=== PATIENT | male | born 1955 | race Caucasian/White ===

== ENCOUNTER 2017-08-14 12:55 | Inpatient (IN) | payer BC ==
[~2017-08-14] VITALS: Ht 180.3 cm; Wt 79.8 kg
[2017-08-14] MEDS ORDERED: ASPIRIN 81 MG TABLET CHEW PO ONE (13:30)
[2017-08-14] MEDS ORDERED: ASPIRIN 81 MG TABLET CHEW ONE (13:49)
[2017-08-14] MEDS ORDERED: PLEASE ENTER ALLERGIES MC SCH ×2 (14:00)
[2017-08-14 14:04] LABS: HEMATOCRIT 39.3 % (39.2-51.8); HEMOGLOBIN 13.5 g/dL (13.7-18.0); WHITE BLOOD COUNT 7.5 x10^3/uL (3.4-10)
[2017-08-14 14:14] LABS: BLOOD UREA NITROGEN 25 mg/dL (7-18)
[2017-08-14 14:22] LABS: IS PT STATUS REG ER OR PRE ER? YES
[2017-08-14] MEDS ORDERED: DEXAMETHASONE 4 MG/ML, 1ML IVPush ONE (14:35)
[2017-08-14] MEDS ORDERED: DEXAMETHASONE 4 MG/ML, 5ML ONE (14:46)
[2017-08-14] MEDS ORDERED: NIAC500T8 PO (15:03)
[2017-08-14] MEDS ORDERED: LISI-170 PO (15:03)
[2017-08-14] MEDS ORDERED: HYDROmorphone 2 MG/ML, 1ML IVPush PRN (15:30)
[2017-08-14] MEDS ORDERED: ACETAMINOPHEN 325 MG TABLET PO PRN (15:30)
[2017-08-14] MEDS ORDERED: LABETALOL 5MG/ML, 20ML IVPush PRN ×2 (15:30→18:30)
[2017-08-14] MEDS ORDERED: ONDANSETRON 2MG/ML, 2ML IVPush PRN (15:30)
[2017-08-14] MEDS ORDERED: POLYETHYLENE GLYCOL 17 GM PACKET PO PRN (15:30)
[2017-08-14] MEDS ORDERED: ENALAPRILAT 1.25 MG/ML, 2ML IVPush PRN ×2 (15:30→18:30)
[2017-08-14] MEDS: SODIUM CHLORIDE 0.9% 1,000 ML IV SCH (16:41)
[2017-08-14 16:59] VITALS: BP 178/106
[2017-08-14] MEDS: DILTIAZEM 120 MG CAP.ER.12H PO SCH (17:35)
[2017-08-14] MEDS: FAMOTIDINE 20 MG/2 ML IVPush SCH (20:21)
[2017-08-14] MEDS: DEXAMETHASONE 4 MG/ML, 1ML IVPush SCH (20:22)
[2017-08-14] MEDS: LABETALOL 5MG/ML, 20ML IVPush PRN (20:22)
[2017-08-15] MEDS: SODIUM CHLORIDE 0.9% 1,000 ML IV SCH ×2 (04:04→16:06)
[2017-08-15 04:05] VITALS: BP_SYST 126
[2017-08-15] MEDS: DEXAMETHASONE 4 MG/ML, 1ML IVPush SCH ×4 (04:05→21:13)
[2017-08-15 04:59] LABS: HEMATOCRIT 36.4 % (39.2-51.8); HEMOGLOBIN 12.2 g/dL (13.7-18.0); WHITE BLOOD COUNT 6.7 x10^3/uL (3.4-10)
[2017-08-15 05:16] LABS: ASPARTATE AMINO TRANSFERASE 7 U/L (15-37); BLOOD UREA NITROGEN 29 mg/dL (7-18)
[2017-08-15] MEDS: SENNA/DOCUSATE TABLET PO SCH (08:53)
[2017-08-15] MEDS: DILTIAZEM 120 MG CAP.ER.12H PO SCH ×2 (08:53→21:13)
[2017-08-15] MEDS: FAMOTIDINE 20 MG/2 ML IVPush SCH ×2 (08:53→21:14)
[2017-08-15] MEDS: LABETALOL 5MG/ML, 20ML IVPush PRN (10:08)
[2017-08-15] MEDS: ENALAPRILAT 1.25 MG/ML, 2ML IVPush PRN (11:23)
[2017-08-16] MEDS: SODIUM CHLORIDE 0.9% 1,000 ML IV SCH (03:05)
[2017-08-16] MEDS: DEXAMETHASONE 4 MG/ML, 1ML IVPush SCH ×2 (03:05→09:03)
[2017-08-16 04:00] VITALS: BP 138/79
[2017-08-16] MEDS ORDERED: LORazepam 2 MG/ML, 1ML IVPush ONE (06:00)
[2017-08-16] MEDS ORDERED: GADOBUTROL 10 MMOL/10 ML PFS ONE (06:25)
[2017-08-16] MEDS ORDERED: SUFentanil 50 MCG/ML, 1ML ONE (07:03)
[2017-08-16] MEDS ORDERED: MIDAZOLAM 1 MG/ML, 2ML ONE (07:03)
[2017-08-16] MEDS ORDERED: SODIUM CHLORIDE 0.9% PF 10ML ONE ×2 (07:04→07:14)
[2017-08-16] MEDS ORDERED: PROPOFOL 10 MG/ML, 20ML ONE ×2 (07:05→07:06)
[2017-08-16] MEDS ORDERED: NEOSTIGMINE 1 MG/ML, 10ML ONE ×2 (07:05→08:51)
[2017-08-16] MEDS ORDERED: ROCURONIUM 10 MG/ML,10ML ONE (07:08)
[2017-08-16] MEDS ORDERED: CEFUROXIME 1.5 GM ONE (07:11)
[2017-08-16] MEDS ORDERED: FUROSEMIDE 20 MG/2 ML ONE (07:12)
[2017-08-16] MEDS ORDERED: MANNITOL PMX 20% 500 ML ONE (07:12)
[2017-08-16] MEDS ORDERED: BUPIVACAINE/PF 0.5% ONE (07:16)
[2017-08-16] MEDS ORDERED: PROPOFOL 50 ML ONE ×3 (07:16→10:23)
[2017-08-16] MEDS ORDERED: THROMBIN 20,000 UNIT VIAL TP ONE (07:16)
[2017-08-16] MEDS ORDERED: BACITRACIN 50,000 UNIT ONE (07:16)
[2017-08-16] MEDS ORDERED: BACITRACIN OINT 500U/GM, 15 GM ONE ×2 (07:17→11:58)
[2017-08-16] MEDS ORDERED: EPINEPHRINE 1 MG/ML, 1ML ONE (07:17)
[2017-08-16] MEDS ORDERED: REMIFENTANIL 2 MG ONE ×2 (07:20→10:02)
[2017-08-16] MEDS ORDERED: SODIUM CHLORIDE 3% 500 ML IV ONE (07:57)
[2017-08-16] MEDS ORDERED: PHENYLEPHRINE 10 MG/ML ONE (07:57)
[2017-08-16] MEDS ORDERED: SODIUM BICARB 8.4%, 50ML SYRINGE ONE (07:57)
[2017-08-16] MEDS ORDERED: DEXAMETHASONE 4 MG/ML, 1ML ONE ×5 (08:39)
[2017-08-16] MEDS ORDERED: GLYCOPYRROLATE 0.2MG/1ML, 5ML ONE (08:51)
[2017-08-16] MEDS: SENNA/DOCUSATE TABLET PO SCH (09:00)
[2017-08-16] MEDS: DILTIAZEM 120 MG CAP.ER.12H PO SCH ×2 (09:00→20:45)
[2017-08-16] MEDS: FAMOTIDINE 20 MG/2 ML IVPush SCH ×2 (09:00→20:48)
[2017-08-16] MEDS ORDERED: KETAMINE 10 MG/ML, 20ML ONE (09:16)
[2017-08-16] MEDS ORDERED: SODIUM CHLORIDE IV ONE (10:00)
[2017-08-16] MEDS ORDERED: ONDANSETRON 2MG/ML, 2ML ONE (11:19)
[2017-08-16] MEDS ORDERED: SODIUM BICARBONATE 1 MEQ/ML, 50ML VIAL ONE (11:41)
[2017-08-16] MEDS ORDERED: LABETALOL 5MG/ML, 20ML ONE (12:51)
[2017-08-16] MEDS: LABETALOL 5MG/ML, 20ML IVPush PRN (13:05)
[2017-08-16] MEDS: LABETALOL 5MG/ML, 20ML IV PRN ×2 (13:28→13:45)
[2017-08-16] MEDS ORDERED: hydrALAzine 20 MG/ML, 1ML IV PRN (13:30)
[2017-08-16] MEDS ORDERED: OXYcodone 5 MG/5 ML ORAL.SOL UDC PO PRN (13:30)
[2017-08-16] MEDS ORDERED: FENTANYL PF 100 MCG/2ML IV PRN (13:30)
[2017-08-16] MEDS ORDERED: METOCLOPRAMIDE 5 MG/ML, 2ML IV PRN (13:30)
[2017-08-16] MEDS ORDERED: ONDANSETRON 2MG/ML, 2ML IVPush PRN (13:30)
[2017-08-16] MEDS ORDERED: HYDROmorphone 1 MG/ML, 1ML IV PRN (13:30)
[2017-08-16] MEDS ORDERED: MEPERIDINE/PF 25MG/0.5ML IVPush PRN (13:30)
[2017-08-16] MEDS ORDERED: ACETAMINOPHEN 325 MG TABLET PO PRN (15:30)
[2017-08-16] MEDS ORDERED: ACETAMINOPHEN 650 MG SUPP PR PRN (15:30)
[2017-08-16] MEDS ORDERED: BISACODYL 10 MG SUPP PR PRN (15:30)
[2017-08-16] MEDS ORDERED: ONDANSETRON 2MG/ML, 2ML IV PRN (15:30)
[2017-08-16] MEDS ORDERED: MAGNESIUM HYDROXIDE 8%, 30ML UDC PO PRN (15:30)
[2017-08-16] MEDS: SODIUM CHLORIDE 3% 500 ML IV SCH (15:42)
[2017-08-16] MEDS: methylPREDNISolone SOD SUCC 125 MG/2 ML IVPush SCH (15:43)
[2017-08-16] MEDS: NS + 20MEQ KCL 1,000 ML IV SCH (15:43)
[2017-08-16] MEDS: LABETALOL 5MG/ML, 20ML IV SCH (15:43)
[2017-08-16] MEDS: LEVETIRACETAM 500 MG in SODIUM CHLORIDE 0.9% 100 ML IV SCH (15:43)
[2017-08-16] MEDS: INSULIN REGULAR 100 UNITS/ML, 3ML VIAL SQ-INSULIN SCH ×2 (15:47→20:45)
[2017-08-16] MEDS: FENTANYL PF 100 MCG/2ML IV PRN (20:45)
[2017-08-17] MEDS: methylPREDNISolone SOD SUCC 125 MG/2 ML IVPush SCH ×3 (00:16→16:26)
[2017-08-17] MEDS: LABETALOL 5MG/ML, 20ML IV SCH ×4 (00:19→23:23)
[2017-08-17] MEDS: LEVETIRACETAM 500 MG in SODIUM CHLORIDE 0.9% 100 ML IV SCH ×2 (03:52→16:26)
[2017-08-17] MEDS: NS + 20MEQ KCL 1,000 ML IV SCH ×2 (03:52→19:18)
[2017-08-17 05:10] LABS: HEMATOCRIT 32.8 % (39.2-51.8); HEMOGLOBIN 11.1 g/dL (13.7-18.0); WHITE BLOOD COUNT 11.8 x10^3/uL (3.4-10)
[2017-08-17 05:35] LABS: BLOOD UREA NITROGEN 29 mg/dL (7-18)
[2017-08-17 05:39] LABS: ASPARTATE AMINO TRANSFERASE 10 U/L (15-37)
[2017-08-17] MEDS: INSULIN REGULAR 100 UNITS/ML, 3ML VIAL SQ-INSULIN SCH ×4 (07:00→21:41)
[2017-08-17] MEDS: FAMOTIDINE 20 MG/2 ML IVPush SCH ×2 (08:00→21:41)
[2017-08-17] MEDS: SENNA/DOCUSATE TABLET PO SCH (08:00)
[2017-08-17] MEDS: DILTIAZEM 120 MG CAP.ER.12H PO SCH ×2 (08:00→21:41)
[2017-08-17] MEDS: SODIUM CHLORIDE 3% 500 ML IV SCH (10:16)
[2017-08-17] MEDS: LISINOPRIL 20 MG TABLET PO SCH (11:50)
[2017-08-17 12:11] LABS: BLOOD UREA NITROGEN 29 mg/dL (7-18)
[2017-08-17] MEDS ORDERED: LORazepam 2 MG/ML, 1ML IVPush ONE (12:30)
[2017-08-17] MEDS: FENTANYL PF 100 MCG/2ML IV PRN (15:30)
[2017-08-17] MEDS ORDERED: GADOBUTROL 10 MMOL/10 ML PFS ONE (15:42)
[2017-08-17] MEDS: HEPARIN 5,000 UNITS/ML, 1ML SQ SCH ×2 (17:12→23:22)
[2017-08-17 17:41] LABS: BLOOD UREA NITROGEN 33 mg/dL (7-18)
[2017-08-17 23:22] LABS: BLOOD UREA NITROGEN 38 mg/dL (7-18)
[2017-08-18] MEDS: methylPREDNISolone SOD SUCC 125 MG/2 ML IVPush SCH (00:35)
[2017-08-18] MEDS: LEVETIRACETAM 500 MG in SODIUM CHLORIDE 0.9% 100 ML IV SCH ×2 (03:18→17:19)
[2017-08-18 04:00] VITALS: BP 108/68
[2017-08-18] MEDS: SODIUM CHLORIDE 3% 500 ML IV SCH ×2 (04:56→17:03)
[2017-08-18 05:26] LABS: BLOOD UREA NITROGEN 37 mg/dL (7-18)
[2017-08-18 05:29] LABS: HEMATOCRIT 30.6 % (39.2-51.8); HEMOGLOBIN 10.2 g/dL (13.7-18.0); WHITE BLOOD COUNT 9.3 x10^3/uL (3.4-10)
[2017-08-18] MEDS: INSULIN REGULAR 100 UNITS/ML, 3ML VIAL SQ-INSULIN SCH ×4 (07:00→20:02)
[2017-08-18] MEDS: NS + 20MEQ KCL 1,000 ML IV SCH (08:17)
[2017-08-18] MEDS: LABETALOL 5MG/ML, 20ML IV SCH ×3 (08:17→22:25)
[2017-08-18] MEDS: FAMOTIDINE 20 MG/2 ML IVPush SCH ×2 (08:18→20:06)
[2017-08-18] MEDS: HEPARIN 5,000 UNITS/ML, 1ML SQ SCH ×3 (08:18→22:24)
[2017-08-18] MEDS ORDERED: DEXAMETHASONE 4 MG/ML, 1ML IV SCH (10:00)
[2017-08-18] MEDS: SENNA/DOCUSATE TABLET PO SCH (10:48)
[2017-08-18] MEDS: DILTIAZEM 120 MG CAP.ER.12H PO SCH ×2 (10:48→20:07)
[2017-08-18] MEDS: DEXAMETHASONE 4 MG TABLET PO SCH ×3 (10:48→22:24)
[2017-08-18] MEDS: LISINOPRIL 20 MG TABLET PO SCH (10:49)
[2017-08-18] MEDS: ENALAPRILAT 1.25 MG/ML, 2ML IVPush PRN (20:03)
[2017-08-18] MEDS: POTASSIUM CHLORIDE 20 MEQ in SODIUM CHLORIDE 0.9% 1,000 ML IV SCH (20:50)
[2017-08-19] MEDS: ENALAPRILAT 1.25 MG/ML, 2ML IVPush PRN ×3 (00:58→19:58)
[2017-08-19] MEDS: LEVETIRACETAM 500 MG in SODIUM CHLORIDE 0.9% 100 ML IV SCH ×2 (03:50→16:47)
[2017-08-19] MEDS: DEXAMETHASONE 4 MG TABLET PO SCH ×4 (04:19→22:57)
[2017-08-19 04:35] LABS: HEMATOCRIT 32.9 % (39.2-51.8); HEMOGLOBIN 11.1 g/dL (13.7-18.0); WHITE BLOOD COUNT 9.1 x10^3/uL (3.4-10)
[2017-08-19] MEDS ORDERED: hydrALAzine 20 MG/ML, 1ML IV PRN (05:30)
[2017-08-19 05:36] VITALS: BP 149/87
[2017-08-19] MEDS: LABETALOL 5MG/ML, 20ML IV SCH ×4 (05:46→22:57)
[2017-08-19] MEDS: INSULIN REGULAR 100 UNITS/ML, 3ML VIAL SQ-INSULIN SCH ×2 (07:00→11:00)
[2017-08-19 07:17] LABS: BLOOD UREA NITROGEN 38 mg/dL (7-18)
[2017-08-19] MEDS: FAMOTIDINE 20 MG/2 ML IVPush SCH ×2 (09:03→19:56)
[2017-08-19] MEDS: POTASSIUM CHLORIDE 20 MEQ in SODIUM CHLORIDE 0.9% 1,000 ML IV SCH (09:03)
[2017-08-19] MEDS: SENNA/DOCUSATE TABLET PO SCH (09:03)
[2017-08-19] MEDS: LISINOPRIL 20 MG TABLET PO SCH (09:03)
[2017-08-19] MEDS: HEPARIN 5,000 UNITS/ML, 1ML SQ SCH ×3 (09:03→22:57)
[2017-08-19] MEDS: DILTIAZEM 120 MG CAP.ER.12H PO SCH ×2 (09:04→19:56)
[2017-08-19] MEDS: AMLODIPINE 5 MG TABLET PO SCH (09:04)
[2017-08-19] MEDS ORDERED: SODIUM CHLORIDE 1 GM TABLET PO SCH (11:30)
[2017-08-19] MEDS: hydrALAzine 20 MG/ML, 1ML IV PRN ×4 (15:00→23:40)
[2017-08-19] MEDS: SODIUM CHLORIDE 1 GM TABLET PO SCH ×2 (16:46→19:56)
[2017-08-19] MEDS: FENTANYL PF 100 MCG/2ML IV PRN (21:36)
[2017-08-19] MEDS ORDERED: METOPROLOL TARTRATE 25 MG TABLET PO SCH (22:30)
[2017-08-19] MEDS: OXYcodone IR 5MG TABLET PO PRN (22:57)
[2017-08-20 01:19] LABS: HEMATOCRIT 32.7 % (39.2-51.8); HEMOGLOBIN 10.9 g/dL (13.7-18.0); WHITE BLOOD COUNT 7.9 x10^3/uL (3.4-10)
[2017-08-20 01:29] LABS: BLOOD UREA NITROGEN 43 mg/dL (7-18)
[2017-08-20] MEDS: LEVETIRACETAM 500 MG in SODIUM CHLORIDE 0.9% 100 ML IV SCH ×2 (03:57→16:20)
[2017-08-20] MEDS: DEXAMETHASONE 4 MG TABLET PO SCH ×3 (03:57→10:29)
[2017-08-20 04:31] VITALS: BP 101/74
[2017-08-20] MEDS: LABETALOL 5MG/ML, 20ML IV SCH ×4 (05:30→23:06)
[2017-08-20] MEDS: FAMOTIDINE 20 MG/2 ML IVPush SCH ×2 (08:36→21:36)
[2017-08-20] MEDS: HEPARIN 5,000 UNITS/ML, 1ML SQ SCH ×3 (08:36→23:06)
[2017-08-20] MEDS: AMLODIPINE 5 MG TABLET PO SCH (08:37)
[2017-08-20] MEDS: LISINOPRIL 20 MG TABLET PO SCH (08:37)
[2017-08-20] MEDS: SENNA/DOCUSATE TABLET PO SCH (08:38)
[2017-08-20] MEDS: DILTIAZEM 120 MG CAP.ER.12H PO SCH (08:39)
[2017-08-20] MEDS: SODIUM CHLORIDE 1 GM TABLET PO SCH ×2 (08:39→17:08)
[2017-08-20] MEDS ORDERED: SODIUM CHLORIDE 1 GM TABLET PO ONE (14:30)
[2017-08-20] MEDS ORDERED: ACETAMINOPHEN 325 MG/10.15 ML UDC PO PRN (16:30)
[2017-08-20] MEDS: DEXAMETHASONE INTENSOL 1 MG/ML ORAL SOL NG SCH ×2 (18:14→21:35)
[2017-08-20] MEDS: SODIUM CHLORIDE 1 GM TABLET NG SCH (21:34)
[2017-08-20] MEDS: METOPROLOL TARTRATE 25 MG TABLET NG SCH (21:35)
[2017-08-20] MEDS: DILTIAZEM 60 MG TABLET NG SCH (21:35)
[2017-08-20] MEDS: TEMAZEPAM 15 MG CAPSULE PO PRN (21:36)
[2017-08-21] MEDS: FENTANYL PF 100 MCG/2ML IV PRN (02:31)
[2017-08-21] MEDS: LEVETIRACETAM 500 MG in SODIUM CHLORIDE 0.9% 100 ML IV SCH ×2 (02:32→15:13)
[2017-08-21 04:52] LABS: HEMATOCRIT 35.1 % (39.2-51.8); WHITE BLOOD COUNT 8.8 x10^3/uL (3.4-10)
[2017-08-21 05:02] LABS: BLOOD UREA NITROGEN 51 mg/dL (7-18)
[2017-08-21] MEDS: DILTIAZEM 60 MG TABLET NG SCH ×4 (05:57→21:10)
[2017-08-21] MEDS: OXYcodone IR 5MG TABLET PO PRN (05:57)
[2017-08-21] MEDS: LABETALOL 5MG/ML, 20ML IV SCH ×3 (05:57→17:24)
[2017-08-21] MEDS: DEXAMETHASONE INTENSOL 1 MG/ML ORAL SOL NG SCH ×3 (05:58→17:23)
[2017-08-21] MEDS: HEPARIN 5,000 UNITS/ML, 1ML SQ SCH ×2 (05:59→15:13)
[2017-08-21 06:00] VITALS: BP 113/77
[2017-08-21] MEDS: FAMOTIDINE 20 MG/2 ML IVPush SCH ×2 (08:42→21:11)
[2017-08-21] MEDS: DOCUSATE 50 MG/5 ML, 10ML UDC NG SCH (08:44)
[2017-08-21] MEDS: SODIUM CHLORIDE 1 GM TABLET NG SCH ×3 (08:44→21:10)
[2017-08-21] MEDS: SENNOSIDES 8.8 MG/5 ML ORAL SOL NG SCH (08:44)
[2017-08-21] MEDS: AMLODIPINE 5 MG TABLET NG SCH (08:45)
[2017-08-21] MEDS: LISINOPRIL 20 MG TABLET NG SCH (08:45)
[2017-08-21] MEDS: NYSTATIN 500,000 UNITS/5 ML UDC PO SCH ×3 (15:13→21:11)
[2017-08-21 21:02] VITALS: BP 130/82
[2017-08-21] MEDS: METOPROLOL TARTRATE 25 MG TABLET NG SCH (21:11)
[2017-08-21] MEDS: TEMAZEPAM 15 MG CAPSULE PO PRN (21:11)
[2017-08-22] VITALS (8 sets, daily range): BP systolic 97–134; BP diastolic 65–83
[2017-08-22] MEDS: DEXAMETHASONE INTENSOL 1 MG/ML ORAL SOL NG SCH ×3 (00:43→12:47)
[2017-08-22] MEDS: HEPARIN 5,000 UNITS/ML, 1ML SQ SCH ×3 (00:43→17:31)
[2017-08-22] MEDS: LABETALOL 5MG/ML, 20ML IV SCH ×4 (01:03→18:30)
[2017-08-22] MEDS: LEVETIRACETAM 500 MG in SODIUM CHLORIDE 0.9% 100 ML IV SCH ×2 (03:10→15:55)
[2017-08-22] MEDS: NYSTATIN 500,000 UNITS/5 ML UDC PO SCH ×4 (06:08→23:08)
[2017-08-22] MEDS: DILTIAZEM 60 MG TABLET NG SCH ×2 (06:39→11:30)
[2017-08-22 06:56] LABS: BLOOD UREA NITROGEN 48 mg/dL (7-18)
[2017-08-22 07:21] LABS: HEMATOCRIT 37.3 % (39.2-51.8); HEMOGLOBIN 12.7 g/dL (13.7-18.0); WHITE BLOOD COUNT 15.2 x10^3/uL (3.4-10)
[2017-08-22] MEDS: LISINOPRIL 20 MG TABLET NG SCH (09:08)
[2017-08-22] MEDS: AMLODIPINE 5 MG TABLET NG SCH (09:09)
[2017-08-22] MEDS: SENNOSIDES 8.8 MG/5 ML ORAL SOL NG SCH (09:09)
[2017-08-22] MEDS: SODIUM CHLORIDE 1 GM TABLET NG SCH ×3 (09:09→23:09)
[2017-08-22] MEDS: DOCUSATE 50 MG/5 ML, 10ML UDC NG SCH (09:09)
[2017-08-22] MEDS: FAMOTIDINE 20 MG/2 ML IVPush SCH (09:10)
[2017-08-22] MEDS: DILTIAZEM 30 MG TABLET NG SCH ×2 (16:17→23:09)
[2017-08-22] MEDS: DEXAMETHASONE 1 MG TABLET PO SCH (19:01)
[2017-08-22] MEDS: METOPROLOL TARTRATE 25 MG TABLET NG SCH (23:09)
[2017-08-22] MEDS: FAMOTIDINE 20 MG TABLET PO SCH (23:09)
[2017-08-23] MEDS: LABETALOL 5MG/ML, 20ML IV SCH ×3 (00:30→10:58)
[2017-08-23 01:39] VITALS: BP 133/77
[2017-08-23] MEDS: DEXAMETHASONE 1 MG TABLET PO SCH ×4 (01:56→18:33)
[2017-08-23] MEDS: HEPARIN 5,000 UNITS/ML, 1ML SQ SCH ×3 (01:57→18:33)
[2017-08-23 06:53] LABS: BLOOD UREA NITROGEN 45 mg/dL (7-18)
[2017-08-23 06:54] LABS: HEMATOCRIT 36.5 % (39.2-51.8); HEMOGLOBIN 12.1 g/dL (13.7-18.0); WHITE BLOOD COUNT 14.9 x10^3/uL (3.4-10)
[2017-08-23 06:57] LABS: DIFF TOTAL CELLS COUNTED 100 CELL DIFF
[2017-08-23 07:00] LABS: VERIFY COUNTS? YES
[2017-08-23] MEDS: LEVETIRACETAM 500 MG in SODIUM CHLORIDE 0.9% 100 ML IV SCH (07:01)
[2017-08-23] MEDS: NYSTATIN 500,000 UNITS/5 ML UDC PO SCH ×4 (07:07→21:02)
[2017-08-23] MEDS: DILTIAZEM 30 MG TABLET NG SCH ×4 (07:07→21:01)
[2017-08-23 08:09] VITALS: BP 127/77
[2017-08-23] MEDS: FAMOTIDINE 20 MG TABLET PO SCH ×2 (08:47→21:02)
[2017-08-23] MEDS: DOCUSATE 100 MG CAPSULE PO SCH (08:47)
[2017-08-23] MEDS: LISINOPRIL 20 MG TABLET NG SCH (08:48)
[2017-08-23] MEDS: SODIUM CHLORIDE 1 GM TABLET NG SCH ×3 (08:48→21:02)
[2017-08-23] MEDS: AMLODIPINE 5 MG TABLET NG SCH (08:48)
[2017-08-23] MEDS: SENNOSIDES 8.6 MG TABLET PO SCH (08:49)
[2017-08-23 10:51] VITALS: BP 111/74
[2017-08-23 13:50] VITALS: BP 116/80
[2017-08-23 16:15] VITALS: BP 130/84
[2017-08-23] MEDS: LEVETIRACETAM 500 MG TABLET PO SCH (18:32)
[2017-08-23 20:01] VITALS: BP 116/75
[2017-08-23] MEDS: METOPROLOL TARTRATE 25 MG TABLET NG SCH (21:02)
[2017-08-23] MEDS ORDERED: LABETALOL 5MG/ML, 20ML IV PRN ×2 (23:30)
[2017-08-24 01:26] VITALS: BP 123/81
[2017-08-24] MEDS: DEXAMETHASONE 1 MG TABLET PO SCH ×4 (01:49→19:53)
[2017-08-24] MEDS: HEPARIN 5,000 UNITS/ML, 1ML SQ SCH ×3 (03:12→19:52)
[2017-08-24 05:29] LABS: BLOOD UREA NITROGEN 39 mg/dL (7-18)
[2017-08-24] MEDS: LEVETIRACETAM 500 MG TABLET PO SCH ×2 (06:38→19:52)
[2017-08-24] MEDS: DILTIAZEM 30 MG TABLET NG SCH ×4 (06:39→19:52)
[2017-08-24] MEDS: NYSTATIN 500,000 UNITS/5 ML UDC PO SCH ×4 (06:39→19:52)
[2017-08-24 07:33] VITALS: BP 129/79
[2017-08-24] MEDS: FAMOTIDINE 20 MG TABLET PO SCH ×2 (08:20→19:52)
[2017-08-24] MEDS: DOCUSATE 100 MG CAPSULE PO SCH (08:21)
[2017-08-24] MEDS: LISINOPRIL 20 MG TABLET NG SCH (08:21)
[2017-08-24] MEDS: SODIUM CHLORIDE 1 GM TABLET NG SCH ×3 (08:22→19:53)
[2017-08-24] MEDS: AMLODIPINE 5 MG TABLET NG SCH (08:22)
[2017-08-24] MEDS: SENNOSIDES 8.6 MG TABLET PO SCH (08:23)
[2017-08-24 13:55] VITALS: BP 95/61
[2017-08-24 16:54] VITALS: BP 111/70
[2017-08-24 19:47] VITALS: BP 117/72
[2017-08-24] MEDS: METOPROLOL TARTRATE 25 MG TABLET NG SCH (19:53)
[2017-08-25] MEDS: DEXAMETHASONE 1 MG TABLET PO SCH ×4 (02:39→21:34)
[2017-08-25] MEDS: HEPARIN 5,000 UNITS/ML, 1ML SQ SCH ×3 (02:39→18:24)
[2017-08-25 02:40] VITALS: BP 105/71
[2017-08-25 05:39] LABS: HEMATOCRIT 35.3 % (39.2-51.8); WHITE BLOOD COUNT 13.7 x10^3/uL (3.4-10)
[2017-08-25 05:52] LABS: BLOOD UREA NITROGEN 44 mg/dL (7-18)
[2017-08-25 06:11] LABS: DIFF TOTAL CELLS COUNTED 100 CELL DIFF
[2017-08-25 06:12] LABS: VERIFY COUNTS? YES
[2017-08-25] MEDS: NYSTATIN 500,000 UNITS/5 ML UDC PO SCH ×4 (06:56→21:35)
[2017-08-25] MEDS: LEVETIRACETAM 500 MG TABLET PO SCH ×2 (06:56→18:24)
[2017-08-25] MEDS: DILTIAZEM 30 MG TABLET NG SCH ×4 (06:57→21:00)
[2017-08-25 07:04] VITALS: BP 128/96
[2017-08-25 07:16] VITALS: BP 119/77
[2017-08-25] MEDS: SENNOSIDES 8.6 MG TABLET PO SCH (09:00)
[2017-08-25] MEDS: FAMOTIDINE 20 MG TABLET PO SCH ×2 (09:03→21:34)
[2017-08-25] MEDS: DOCUSATE 100 MG CAPSULE PO SCH (09:03)
[2017-08-25] MEDS: SODIUM CHLORIDE 1 GM TABLET NG SCH ×3 (09:03→21:34)
[2017-08-25] MEDS: LISINOPRIL 20 MG TABLET NG SCH (09:04)
[2017-08-25] MEDS: AMLODIPINE 5 MG TABLET NG SCH (09:04)
[2017-08-25 15:34] VITALS: BP 100/62
[2017-08-25 20:05] VITALS: BP 99/62
[2017-08-25] MEDS: METOPROLOL TARTRATE 25 MG TABLET NG SCH (21:00)
[2017-08-26 01:30] VITALS: BP 117/71
[2017-08-26] MEDS: DEXAMETHASONE 1 MG TABLET PO SCH ×4 (02:32→21:05)
[2017-08-26] MEDS: HEPARIN 5,000 UNITS/ML, 1ML SQ SCH ×3 (02:32→19:45)
[2017-08-26] MEDS: DILTIAZEM 30 MG TABLET NG SCH ×4 (06:00→21:02)
[2017-08-26 07:05] VITALS: BP 112/71
[2017-08-26] MEDS: LEVETIRACETAM 500 MG TABLET PO SCH ×2 (07:07→19:44)
[2017-08-26] MEDS: NYSTATIN 500,000 UNITS/5 ML UDC PO SCH ×4 (07:07→21:01)
[2017-08-26] MEDS: DOCUSATE 100 MG CAPSULE PO SCH (09:00)
[2017-08-26] MEDS: SENNOSIDES 8.6 MG TABLET PO SCH (09:00)
[2017-08-26] MEDS: BACITRACIN OINT 500U/GM, 15 GM TP SCH ×2 (09:00→21:02)
[2017-08-26] MEDS: SODIUM CHLORIDE 1 GM TABLET NG SCH ×3 (09:23→21:02)
[2017-08-26] MEDS: AMLODIPINE 5 MG TABLET NG SCH (09:26)
[2017-08-26] MEDS: LISINOPRIL 20 MG TABLET NG SCH (09:26)
[2017-08-26] MEDS: FAMOTIDINE 20 MG TABLET PO SCH ×2 (09:27→21:02)
[2017-08-26 13:45] VITALS: BP 95/62
[2017-08-26 21:07] VITALS: BP 110/72
[2017-08-27 03:16] VITALS: BP 112/79
[2017-08-27] MEDS: HEPARIN 5,000 UNITS/ML, 1ML SQ SCH ×3 (03:18→18:41)
[2017-08-27] MEDS: DEXAMETHASONE 1 MG TABLET PO SCH ×4 (03:21→21:29)
[2017-08-27] MEDS: DILTIAZEM 30 MG TABLET NG SCH ×4 (05:50→21:27)
[2017-08-27 05:58] LABS: HEMATOCRIT 36.7 % (39.2-51.8); HEMOGLOBIN 12.3 g/dL (13.7-18.0); WHITE BLOOD COUNT 11.6 x10^3/uL (3.4-10)
[2017-08-27] MEDS: NYSTATIN 500,000 UNITS/5 ML UDC PO SCH ×4 (07:17→21:28)
[2017-08-27] MEDS: LEVETIRACETAM 500 MG TABLET PO SCH ×2 (07:17→18:41)
[2017-08-27 07:24] LABS: BLOOD UREA NITROGEN 38 mg/dL (7-18)
[2017-08-27 08:31] VITALS: BP 104/67
[2017-08-27] MEDS: LISINOPRIL 20 MG TABLET NG SCH (09:40)
[2017-08-27] MEDS: SODIUM CHLORIDE 1 GM TABLET NG SCH ×3 (09:41→21:27)
[2017-08-27] MEDS: SENNOSIDES 8.6 MG TABLET PO SCH (09:42)
[2017-08-27] MEDS: BACITRACIN OINT 500U/GM, 15 GM TP SCH ×2 (09:42→21:28)
[2017-08-27] MEDS: DOCUSATE 100 MG CAPSULE PO SCH (09:42)
[2017-08-27] MEDS: FAMOTIDINE 20 MG TABLET PO SCH ×2 (09:42→21:27)
[2017-08-27 11:33] VITALS: BP 103/72
[2017-08-27 15:01] VITALS: BP 98/64
[2017-08-27 15:52] VITALS: BP 110/69
[2017-08-27] MEDS: CEPHALEXIN 250 MG CAPSULE PO SCH ×2 (15:54→21:28)
[2017-08-27] MEDS: MELATONIN 3 MG TABLET PO SCH (21:00)
[2017-08-27 21:34] VITALS: BP 96/61
[2017-08-28] VITALS (8 sets, daily range): BP systolic 93–115; BP diastolic 60–75
[2017-08-28] MEDS: DEXAMETHASONE 1 MG TABLET PO SCH ×4 (03:33→22:26)
[2017-08-28] MEDS: HEPARIN 5,000 UNITS/ML, 1ML SQ SCH ×3 (03:33→18:47)
[2017-08-28 06:15] LABS: BLOOD UREA NITROGEN 39 mg/dL (7-18)
[2017-08-28] MEDS: DILTIAZEM 30 MG TABLET NG SCH ×4 (06:38→22:29)
[2017-08-28] MEDS: LEVETIRACETAM 500 MG TABLET PO SCH ×2 (06:38→18:47)
[2017-08-28] MEDS: NYSTATIN 500,000 UNITS/5 ML UDC PO SCH ×4 (06:38→22:26)
[2017-08-28] MEDS: SENNOSIDES 8.6 MG TABLET PO SCH (09:00)
[2017-08-28] MEDS: FAMOTIDINE 20 MG TABLET PO SCH ×2 (09:19→22:26)
[2017-08-28] MEDS: BACITRACIN OINT 500U/GM, 15 GM TP SCH ×2 (09:19→22:26)
[2017-08-28] MEDS: DOCUSATE 100 MG CAPSULE PO SCH (09:19)
[2017-08-28] MEDS: LISINOPRIL 20 MG TABLET NG SCH (09:20)
[2017-08-28] MEDS: SODIUM CHLORIDE 1 GM TABLET NG SCH ×3 (09:20→22:23)
[2017-08-28] MEDS: CEPHALEXIN 250 MG CAPSULE PO SCH ×3 (09:21→22:24)
[2017-08-28] MEDS: MELATONIN 3 MG TABLET PO SCH (22:25)
[2017-08-29 01:17] VITALS: BP 100/67
[2017-08-29] MEDS: DEXAMETHASONE 1 MG TABLET PO SCH ×3 (03:14→15:30)
[2017-08-29] MEDS: HEPARIN 5,000 UNITS/ML, 1ML SQ SCH ×2 (03:14→11:00)
[2017-08-29 05:42] VITALS: BP 104/68
[2017-08-29] MEDS: NYSTATIN 500,000 UNITS/5 ML UDC PO SCH ×2 (05:43→11:00)
[2017-08-29 08:11] VITALS: BP 123/80
[2017-08-29] MEDS: FAMOTIDINE 20 MG TABLET PO SCH (08:16)
[2017-08-29] MEDS: SENNOSIDES 8.6 MG TABLET PO SCH (08:16)
[2017-08-29] MEDS: SODIUM CHLORIDE 1 GM TABLET NG SCH (08:16)
[2017-08-29] MEDS: DOCUSATE 100 MG CAPSULE PO SCH (08:16)
[2017-08-29] MEDS: CEPHALEXIN 250 MG CAPSULE PO SCH (08:17)
[2017-08-29] MEDS: LEVETIRACETAM 500 MG TABLET PO SCH (08:17)
[2017-08-29] MEDS: LISINOPRIL 20 MG TABLET NG SCH (08:17)
[2017-08-29] MEDS: BACITRACIN OINT 500U/GM, 15 GM TP SCH (08:18)
[2017-08-29] MEDS: DILTIAZEM 30 MG TABLET NG SCH ×2 (08:18→11:06)
[2017-08-29 11:07] VITALS: BP 103/70
[2017-08-29] MEDS ORDERED: LISI-170 NG (12:04)
[2017-08-29] MEDS ORDERED: ACET650S21 PO (12:04)
[2017-08-29] MEDS ORDERED: DOCU-131 PO (12:04)
[2017-08-29] MEDS ORDERED: OXYC5TAB3 PO (12:04)
[2017-08-29] MEDS ORDERED: CEPH-375 PO (12:04)
[2017-08-29] MEDS ORDERED: BACI120O TP (12:04)
[2017-08-29] MEDS ORDERED: FAMO20TA7 PO (12:04)
[2017-08-29] MEDS ORDERED: DEXA1TAB5 PO (12:04)
[2017-08-29 13:48] VITALS: BP 101/68
== END 2017-08-29 15:00 | disposition home or self-care (01) | DRG 26 ==
LOC: ED 14:38 → EDIP 14:39 → ED 15:01 → CCU 15:58 → ICU 08-17 11:07 → CCU 08-18 18:22 → ICU 08-19 15:37 → 4NOR 08-21 18:08
PROVIDERS: ADMIT Internal Medicine; ATTEND Internal Medicine
PROC: 00B70ZZ Excision of Cerebral Hemisphere, Open Approach (ICD-10-PCS; principal; 2017-08-14)
DX: C71.1 Malignant neoplasm of frontal lobe (principal); B37.0 Candidal stomatitis; E87.0 Hyperosmolality and hypernatremia; R56.9 Unspecified convulsions; R13.10 Dysphagia, unspecified; G81.94 Hemiplegia, unspecified affecting left nondominant side; E78.5 Hyperlipidemia, unspecified; I12.9 Hypertensive chronic kidney disease with stage 1 through stage 4 chronic kidney disease, or unspecified chronic kidney disease; N18.9 Chronic kidney disease, unspecified; Z79.82 Long term (current) use of aspirin; Z79.899 Other long term (current) drug therapy; Z80.8 Family history of malignant neoplasm of other organs or systems; Z82.3 Family history of stroke; Z82.49 Family history of ischemic heart disease and other diseases of the circulatory system; Z82.5 Family history of asthma and other chronic lower respiratory diseases; Z83.3 Family history of diabetes mellitus; Z90.2 Acquired absence of lung [part of]; Z92.21 Personal history of antineoplastic chemotherapy; Z92.3 Personal history of irradiation; Z85.118 Personal history of other malignant neoplasm of bronchus and lung
CPT/HCPCS: 36415; 70450; 70553; 71010; 74230; 80048; 80053; 82040; 82306; 82330; 82607; 82803; 82947; 82962; 83735; 84132; 84295; 84443; 84484; 85014; 85025; 85610; 86850; 86900; 86923; 87081; 88307; 88331; 88341; 88342; 93005; 96374; 96375; A9585; C1713; J0171; J0697; J1100; J1644; J1815; J1953; J2250; J2405; J2704; J2710; J3010; J3480; J3490; 92523-GN; C1760; C1768; G0461; J0360; J1940; J2060; J2370; J2930; J7030; J7050; S0028